=== PATIENT | female | born 1990 | race Caucasian/White ===

== ENCOUNTER 2017-04-20 13:21 | Emergency (ER) | payer SELFPAY ==
[~2017-04-20] VITALS: Ht 167.6 cm; Wt 67.7 kg
[~2017-04-20 13:21] MED LIST: FLAGYL500 MG PO
[2017-04-20 13:24] VITALS: BP 115/67; TEMP 98.3
[2017-04-20] MEDS ORDERED: FLEXERIL 1010 MG/TAB PO (15:24)
[2017-04-20 15:32] VITALS: PULSE 68
== END 2017-04-20 15:33 | disposition home or self-care (01) ==
LOC: COL.ER 13:21
DX: S13.4XXA Sprain of ligaments of cervical spine, initial encounter (principal); F17.210 Nicotine dependence, cigarettes, uncomplicated; W10.9XXA Fall (on) (from) unspecified stairs and steps, initial encounter; W22.8XXA Striking against or struck by other objects, initial encounter
CPT/HCPCS: J1885; J2360

== ENCOUNTER 2018-08-09 14:58 | Emergency (ER) | payer SELFPAY ==
[~2018-08-09] VITALS: Ht 165.1 cm; Wt 65.9 kg
[~2018-08-09 14:58] MED LIST changes: +FLEXERIL 1010 MG/TAB PO
[2018-08-09 15:04] VITALS: BP 130/65; PULSE 91; TEMP 97.9
[2018-08-09] MEDS ORDERED: ZITHROMAX Z PA250 MG PO (15:21)
== END 2018-08-09 16:10 | disposition home or self-care (01) ==
LOC: COL.ER 14:58
DX: J20.9 Acute bronchitis, unspecified (principal); Z87.891 Personal history of nicotine dependence

== ENCOUNTER 2021-11-23 10:51 | Emergency (ER) | payer SELFPAY ==
[~2021-11-23] VITALS: Ht 167.6 cm; Wt 84.1 kg
[~2021-11-23 10:51] MED LIST changes: +AMOXICILLIN 50500 MG PO; +ZITHROMAX Z PA250 MG PO
[2021-11-23 10:57] VITALS: TEMP 98.7
[2021-11-23 11:28] LABS: COLLECTION METHOD CLEAN CATCH
[2021-11-23 11:30] LABS: BASO % 0.2 % (0.0-2.0); EOS % 0.1 % (0.0-4.0); GRAN # 12.6 K/mm3 (1.4-6.5); GRAN % 76.8 % (42.2-75.2); HEMATOCRIT 37.9 % (37.0-47.0); HEMOGLOBIN 12.9 g/dl (12.5-16.0); LYMPH # 2.5 K/mm3 (1.2-3.4); MEAN CELL VOLUME 92 fl (80.0-100.0); MEAN CORPUSCULAR HEMOGLOBIN 32 pg (27-31); MEAN CORPUSCULAR HGB CONC 34 g/dl (33.0-37.0); MEAN PLATELET VOLUME 9.4 fl (7.4-10.4); MONO # 1.2 K/mm3 (0.1-0.6); MONO % 7.5 % (1.7-9.3); PLATELET COUNT 317 K/mm3 (130-400); REDCELL DISTRIBUTION WIDTH-CV 12.6 % (11.5-14.5)
[2021-11-23 11:34] LABS: MUCOUS Present (NOT PRESENT); PH 6 (5-8); SQUAMOUS EPITHELIAL 0-2 /hpf (0-10); URINE APPEARANCE Hazy (CLEAR/HAZY); URINE BACTERIA None Seen /hpf (NONE SEEN); URINE BILIRUBIN Negative (NEGATIVE); URINE BLOOD Negative (NEGATIVE); URINE COLOR Yellow (YELLOW); URINE GLUCOSE Negative (NEGATIVE); URINE KETONE Negative (NEGATIVE); URINE LEUKOCYTE ESTERASE Negative (NEGATIVE); URINE NITRATE Negative (NEGATIVE); URINE PROTEIN(semi-quant) Negative (NEGATIVE); URINE RBC 0-2 /hpf (0-2); URINE UROBILINOGEN Negative (NEGATIVE)
[2021-11-23 11:52] LABS: ALBUMIN 3.8 gm/dL (3.5-5.0); CALCIUM 9.3 mg/dL (8.4-10.2); CREATININE, serum 0.77 mg/dL (0.57-1.11); POTASSIUM 3.8 mmol/L (3.5-4.5); TOTAL PROTEIN 7.8 gm/dL (6.2-8.1)
[2021-11-23 13:24] VITALS: BP 107/69; PULSE 85
== END 2021-11-23 13:26 | disposition home or self-care (01) ==
LOC: COL.ER 10:51
PROVIDERS: Personal Emergency Response Attendant; Physician Assistant
DX: N83.201 Unspecified ovarian cyst, right side (principal); Z87.891 Personal history of nicotine dependence; Z32.02 Encounter for pregnancy test, result negative
CPT/HCPCS: J1885; J7030; Q9967

== ENCOUNTER 2021-11-25 07:47 | Emergency (ER) | payer SELFPAY ==
[~2021-11-25] VITALS: Ht 167.6 cm; Wt 84.1 kg
[2021-11-25 07:59] VITALS: TEMP 99.4
[2021-11-25 08:30] LABS: COLLECTION METHOD CLEAN CATCH
[2021-11-25 08:33] LABS: BASO # 0.1 K/mm3 (0.0-0.2); BASO % 0.3 % (0.0-2.0); EOS % 0.1 % (0.0-4.0); GRAN % 79.9 % (42.2-75.2); HEMATOCRIT 37.1 % (37.0-47.0); HEMOGLOBIN 12.6 g/dl (12.5-16.0); LYMPH % 11.4 % (20.0-51.0); MEAN CELL VOLUME 93 fl (80.0-100.0); MEAN CORPUSCULAR HEMOGLOBIN 32 pg (27-31); MEAN CORPUSCULAR HGB CONC 34 g/dl (33.0-37.0); MEAN PLATELET VOLUME 9.5 fl (7.4-10.4); MONO # 1.3 K/mm3 (0.1-0.6); MONO % 7.7 % (1.7-9.3); PLATELET COUNT 345 K/mm3 (130-400); REDCELL DISTRIBUTION WIDTH-CV 12.4 % (11.5-14.5)
[2021-11-25 08:37] LABS: MUCOUS Present (NOT PRESENT); PH 5 (5-8); SQUAMOUS EPITHELIAL 0-2 /hpf (0-10); URINE APPEARANCE Hazy (CLEAR/HAZY); URINE BACTERIA None Seen /hpf (NONE SEEN); URINE BILIRUBIN Negative (NEGATIVE); URINE BLOOD 2+ (NEGATIVE); URINE COLOR Yellow (YELLOW); URINE GLUCOSE Negative (NEGATIVE); URINE KETONE Negative (NEGATIVE); URINE LEUKOCYTE ESTERASE 2+ (NEGATIVE); URINE NITRATE Negative (NEGATIVE); URINE PROTEIN(semi-quant) 1+ (NEGATIVE); URINE UROBILINOGEN Negative (NEGATIVE)
[2021-11-25 08:44] LABS: ALBUMIN 3.5 gm/dL (3.5-5.0); BILIRUBIN,TOTAL 0.8 mg/dL (0.2-1.2); CALCIUM 9.3 mg/dL (8.4-10.2); CREATININE, serum 0.76 mg/dL (0.57-1.11); POTASSIUM 3.5 mmol/L (3.5-4.5); TOTAL PROTEIN 7.9 gm/dL (6.2-8.1)
[2021-11-25] MEDS ORDERED: PERCOCET 325 MG1 TA2 PO (11:15)
[2021-11-25] MEDS ORDERED: CEPHALEXIN500 M1 PO (11:18)
[2021-11-25 11:37] VITALS: BP 154/84; PULSE 128
== END 2021-11-25 11:43 | disposition home or self-care (01) ==
LOC: COL.ER 07:47
PROVIDERS: Personal Emergency Response Attendant
DX: N39.0 Urinary tract infection, site not specified (principal); N83.201 Unspecified ovarian cyst, right side; Z87.891 Personal history of nicotine dependence; Z32.02 Encounter for pregnancy test, result negative
CPT/HCPCS: J0696; J2270; J2405; J7030

== ENCOUNTER 2021-12-22 03:40 | Emergency (ER) | payer SELFPAY ==
[~2021-12-22] VITALS: Ht 165.1 cm; Wt 84.1 kg
[~2021-12-22 03:40] MED LIST changes: +CEPHALEXIN500 M1 PO; +PERCOCET 325 MG1 TA2 PO
[2021-12-22 03:47] VITALS: BP 132/83; TEMP 98
[2021-12-22 06:15] VITALS: PULSE 84
== END 2021-12-22 06:15 | disposition home or self-care (01) ==
LOC: COL.ER 03:40
DX: Z20.2 Contact with and (suspected) exposure to infections with a predominantly sexual mode of transmission (principal); Z28.310 Unvaccinated for COVID-19

== ENCOUNTER 2024-04-20 15:25 | Emergency (ER) | payer OTHER ==
[~2024-04-20] VITALS: Ht 167.6 cm; Wt 84.1 kg
[~2024-04-20 15:25] MED LIST changes: +CRUTCHES MC; +MOTRIN 800800 MG/TAB PO
[2024-04-20 15:30] VITALS: TEMP 98
[2024-04-20] MEDS ORDERED: NS 1,000 ML IV ONE (16:15)
[2024-04-20] MEDS ORDERED: Ketorolac 30 MG/ML VIAL IV ONE (16:15)
[2024-04-20 16:38] LABS: COLLECTION METHOD CLEAN CATCH
[2024-04-20 16:45] LABS: BASO % 0.3 % (0.0-2.0); EOS # 0.2 K/mm3 (0.0-0.7); EOS % 2.3 % (0.0-4.0); GRAN # 4.3 K/mm3 (1.4-6.5); GRAN % 61.1 % (42.2-75.2); HEMATOCRIT 39.8 % (37.0-47.0); HEMOGLOBIN 13.2 g/dl (12.5-16.0); LYMPH # 2.2 K/mm3 (1.2-3.4); MEAN CELL VOLUME 97 fl (80.0-100.0); MEAN CORPUSCULAR HEMOGLOBIN 32 pg (27-31); MEAN CORPUSCULAR HGB CONC 33 g/dl (33.0-37.0); MEAN PLATELET VOLUME 9.9 fl (7.4-10.4); MONO # 0.4 K/mm3 (0.1-0.6); MONO % 5.2 % (1.7-9.3); PLATELET COUNT 251 K/mm3 (130-400); RED BLOOD COUNT 4.09 M/mm3 (4.10-5.30); REDCELL DISTRIBUTION WIDTH-CV 12.6 % (11.5-14.5)
[2024-04-20 16:47] LABS: URINE APPEARANCE CLOUDY (CLEAR/HAZY); URINE BLOOD TRACE (NEGATIVE); URINE COLOR YELLOW (YELLOW); URINE GLUCOSE NEGATIVE (NEGATIVE); URINE KETONE 1+ (NEGATIVE); URINE NITRATE NEGATIVE (NEGATIVE); URINE PROTEIN(semi-quant) NEGATIVE (NEGATIVE); URINE UROBILINOGEN 0.2 E.U/dL (0.2-1.0)
[2024-04-20 17:05] LABS: ALBUMIN 3.7 g/dL (3.5-5.0); BILIRUBIN,TOTAL 1.4 mg/dL (0.2-1.2); C-REACTIVE PROTEIN 0.17 mg/dL (0.00-0.50); CALCIUM 8.8 mg/dL (8.4-10.2); CREATININE, serum 0.7 mg/dL (0.57-1.11); POTASSIUM 3.7 mEq/L (3.5-4.5); TOTAL PROTEIN 6.8 g/dl (6.2-8.1)
[2024-04-20] MEDS ORDERED: NS 100 ML IV SCH (17:20)
[2024-04-20] MEDS ORDERED: Iohexol 300 - 100 ML VIAL IV ONE (17:21)
[2024-04-20] MEDS ORDERED: MACROBID 1100 MG/CAP PO (17:52)
[2024-04-20] MEDS ORDERED: NAPROSYN500 MG PO (17:52)
[2024-04-20 18:02] VITALS: BP 114/78; PULSE 78
== END 2024-04-20 18:15 | disposition home or self-care (01) ==
LOC: COL.ER 15:25
PROVIDERS: Emergency Medicine
DX: N83.209 Unspecified ovarian cyst, unspecified side (principal); N39.0 Urinary tract infection, site not specified
CPT/HCPCS: J1885; J7030; Q9967